=== PATIENT | female | born 1990 | race Caucasian/White ===

== ENCOUNTER 2021-02-07 14:50 | Emergency (ER) | payer MEDICAID ==
[~2021-02-07] VITALS: Ht 172.7 cm; Wt 65.0 kg
[2021-02-07] MEDS ORDERED: IBUPROFEN 400MG TABLET PO ONE (16:45)
[2021-02-07] MEDS ORDERED: ACETAMINOPHEN 325MG TABLET PO ONE (16:45)
[2021-02-07 19:28] LABS: BASOPHILS % 0.5 % (0.0-2.0); EOSINOPHILS % 2.4 % (0.0-5.0); HEMATOCRIT. 34.9 % (36.0-48.0); LYMPHOCYTES % 21.6 % (20.0-50.0); MEAN CORPUSCULAR VOLUME 92.9 fL (81.0-99.0); MEAN PLATELET VOLUME 8.3 fl (7.4-10.4); MONOCYTES % 8.4 % (2.0-8.0); NEUTROPHILS % 67.1 % (40.0-76.0); PLATELET 430 x1000/uL (130-400); RED BLOOD CELL COUNT 3.75 mill/uL (4.2-5.4)
[2021-02-07 19:41] LABS: CHLORIDE 106 mEq/L (98-107)
[2021-02-07 19:51] LABS: HCG SCREEN NEGATIVE
[2021-02-07 22:21] VITALS: BP 124/78
[2021-02-08 01:16] LABS: CLARITY URINE CLEAR (CLEAR); COLOR URINE YELLOW (YELLOW); KETONES URINE NEGATIVE (NEGATIVE); LEUKOCYTE ESTERASE URINE 1+ (NEGATIVE); NITRITE URINE NEGATIVE (NEGATIVE); OCCULT BLOOD URINE NEGATIVE (NEGATIVE); PROTEIN URINE NEGATIVE (NEGATIVE); SPECIFIC GRAVITY URINE 1.016 (1.005-1.030)
[2021-02-08 01:53] LABS: *BARBITURATES SCREEN URINE NEGATIVE (NEGATIVE); *BENZODIAZEPINES SCREEN URINE NEGATIVE (NEGATIVE); *COCAINE SCREEN URINE NEGATIVE (NEGATIVE); METHADONE URINE SCREEN NEGATIVE (NEGATIVE); OPIATES URINE SCREEN NEGATIVE (NEGATIVE); PHENCYCLIDINE URINE SCREEN NEGATIVE (NEGATIVE)
[2021-02-08 01:54] LABS: CANNABINOID URINE SCREEN NEGATIVE (NEGATIVE)
[2021-02-08 02:33] LABS: *AMPHETAMINES SCREEN URINE PRESUMTIVE POSITIVE (NEGATIVE)
[2021-02-08] MEDS ORDERED: IOHEXOL-350 100 ML BOTTLE ONE (03:51)
[2021-02-11 09:11] LABS: NEISSERIA GONORRHOEAE NAA Positive (Negative)
== END 2021-02-08 04:07 | disposition home or self-care (01) ==
LOC: ER 14:50
DX: M79.601 Pain in right arm (principal); N83.201 Unspecified ovarian cyst, right side; Y04.0XXA Assault by unarmed brawl or fight, initial encounter; Y93.89 Activity, other specified; Y92.89 Other specified places as the place of occurrence of the external cause; Y99.8 Other external cause status
CPT/HCPCS: 36415; 71045; 71275; 74177; 76830; 76856; 76857; 80048; 80076; 80305; 81003; 81025; 83690; 84703; 85025; 85379; 87491; 87591; 93005; 99285; Q9967